=== PATIENT | female | born 1975 | race Caucasian/White ===

== ENCOUNTER 2017-08-06 18:26 | Emergency (ER) | payer OTHER ==
[~2017-08-06] VITALS: Ht 157.5 cm; Wt 74.8 kg
[~2017-08-06 18:26] MED LIST: GABA100 PO; HYDACE5325 PO; ONDA8ODT MM
[2017-08-06] MEDS ORDERED: BUPR100ER PO (19:41)
[2017-08-06] MEDS ORDERED: MONT10T PO (19:42)
[2017-08-06] MEDS ORDERED: Omeprazole20 M1 (19:42)
[2017-08-06] MEDS ORDERED: Norco 5-325 Ta1 EACH PO (19:45)
== END 2017-08-06 20:28 | disposition home or self-care (01) ==
LOC: ER 18:26
DX: S06.0X0A Concussion without loss of consciousness, initial encounter (principal); S12.601A Unspecified nondisplaced fracture of seventh cervical vertebra, initial encounter for closed fracture; S39.012A Strain of muscle, fascia and tendon of lower back, initial encounter; F32.9 Major depressive disorder, single episode, unspecified; F17.200 Nicotine dependence, unspecified, uncomplicated; Z88.2 Allergy status to sulfonamides; Z79.899 Other long term (current) drug therapy; V47.5XXA Car driver injured in collision with fixed or stationary object in traffic accident, initial encounter
CPT/HCPCS: 70450; 72100; 72125; 72220; 96374; 96375; 99284; J1170; J1885; J2405

== ENCOUNTER → 2017-09-27 | Outpatient (CLI) | payer OTHER ==
[~2017-09-27] MED LIST changes: +BUPR100ER PO; +MONT10T PO; +Norco 5-325 Ta1 EACH PO; +Omeprazole20 M1
[2017-09-27 19:15] LABS: Specimen Source URINE
[2017-09-29 01:23] LABS: Source Urine
== END ==
LOC: LAB SHORT 19:13 → LAB 19:13
PROVIDERS: Physician Assistant
DX: Z11.3 Encounter for screening for infections with a predominantly sexual mode of transmission (principal)
CPT/HCPCS: 87491; 87591

== ENCOUNTER → 2018-02-18 | Outpatient (CLI) | payer OTHER ==
[2018-02-21 00:10] LABS: CHLAMYDIA TRACHOMATIS, NAA Negative (Negative); NEISSERIA GONORRHOEAE, NAA Negative (Negative)
== END | disposition home or self-care (01) ==
LOC: LAB SHORT 13:52 → LAB 13:52
PROVIDERS: Physician Assistant
DX: Z11.3 Encounter for screening for infections with a predominantly sexual mode of transmission (principal)
CPT/HCPCS: 87491; 87591